=== PATIENT | female | born 1970 | race Caucasian/White ===

== ENCOUNTER 2018-01-21 16:21 | Inpatient (IN) | payer OTHER ==
[~2018-01-21] VITALS: Ht 162.6 cm; Wt 71.1 kg
[2018-01-21] MEDS ORDERED: AMOXICILLIN500 MG PO (16:42)
[2018-01-21] MEDS ORDERED: ALLEGRA ALLERGY60 MG PO (16:42)
[2018-01-22] MEDS ORDERED: IBU600 MG PO (10:02)
[2018-01-23] MEDS ORDERED: CLINDAMYCIN HC300 MG PO (09:34)
[2018-01-23] MEDS ORDERED: CEPHALEXIN500 MG PO (09:34)
[2018-01-23] MEDS ORDERED: DICLOFENAC POTA50 MG PO (09:36)
== END 2018-01-23 10:15 | disposition home or self-care (01) | DRG 872 ==
LOC: ED 16:21 → MS 19:31
PROVIDERS: ADMIT Internal Medicine
DX: A41.4 Sepsis due to anaerobes (principal); K11.21 Acute sialoadenitis; K11.7 Disturbances of salivary secretion; M35.00 Sjogren syndrome, unspecified; M06.9 Rheumatoid arthritis, unspecified; I73.00 Raynaud's syndrome without gangrene; Z79.899 Other long term (current) drug therapy
CPT/HCPCS: 36415; 70450; 70490; 70492; 80048; 80053; 83605; 85025; 96361; 96365; 96375; 99285; J0690; J1650; J1885; J7030; J7120; Q9967

== ENCOUNTER 2021-06-09 13:15 | Emergency (ER) | payer BC ==
[~2021-06-09] VITALS: Ht 162.6 cm; Wt 71.1 kg
[~2021-06-09 13:15] MED LIST: ALLEGRA ALLERGY60 MG PO; AMOXICILLIN500 MG PO; CEPHALEXIN500 MG PO; CLINDAMYCIN HC300 MG PO; DICLOFENAC POTA50 MG PO; IBU600 MG PO
[2021-06-09] MEDS ORDERED: ATIVAN1 MG PO (19:43)
== END 2021-06-09 19:51 | disposition home or self-care (01) ==
LOC: ED 13:15
DX: U07.1 COVID-19 (principal); F41.9 Anxiety disorder, unspecified; Z23 Encounter for immunization; M06.9 Rheumatoid arthritis, unspecified
CPT/HCPCS: 96374; 96376; 99283-25; C9803; J2060; J7030; M0247; U0003